=== PATIENT | male | born 1955 | race Caucasian/White ===

== ENCOUNTER 2017-12-10 09:52 | Day surgery (SDC) | payer BC ==
[2017-12-10] MEDS ORDERED: Sodium Chloride 0.9% 10 ML Syringe FLUSH PRN (10:30)
[2017-12-10] MEDS: Lactated Ringers 1,000 ML IV SCH (10:57)
[2017-12-10] MEDS ORDERED: Propofol 200 MG/20 ML SDV ONE ×2 (11:36→11:42)
[2017-12-10] MEDS ORDERED: fentaNYL 100 MCG/2 ML SDV ONE ×2 (11:36→11:42)
[2017-12-10] MEDS ORDERED: Midazolam 1 MG/ML 2 ML SDV ONE ×2 (11:36→11:42)
--- NOTE | 2017-12-10 12:12 | PCM.OPNOTE ---
- General Post-Op/Procedure Note Date of Surgery/Procedure: 12/10/17 Operative Procedure(s): Colonoscopy with Bx's Findings: Normal Pre Op Diagnosis: Chronic Diarrhea Post-Op Diagnosis: Same Anesthesia Technique: MAC Primary Surgeon: Ubaldo Perry Anesthesia Provider: Loly Stephens EBL in mLs: 0 Complications: None Condition: Good Free Text/Narrative:: Intake & Output 12/09/17 12/10/17 12/10/17 22:59 06:59 14:59 Intake Total 300 Balance 300
--- NOTE | 2017-12-10 14:22 | OR ---
Date of Procedure: 12/10/2017 PREOPERATIVE DIAGNOSIS: Chronic diarrhea. POSTOPERATIVE DIAGNOSIS: Normal colonoscopy. PROCEDURE: Colonoscopy with biopsy. ANESTHESIA: IV sedation. DESCRIPTION OF PROCEDURE: The patient was brought to procedure room where he was placed on his left side and IV sedation administered. Digital rectal exam was performed which was normal. Colonoscope was inserted and advanced to the level of the cecum without difficulty. Cecal position was confirmed by identifying the appendiceal lumen and ileocecal valve. Prep was good and surfaces were well visualized. Upon withdrawing the scope, the ascending, transverse, and descending colon were all normal in appearance. Sigmoid colon and rectum were normal. Retroflexion was normal. I did take random biopsies throughout all segments of the colon and rectum to check for microscopic colitis. No source of diarrhea was seen. Air was removed and the scope withdrawn. The patient tolerated the procedure well and returned to recovery in stable condition. The patient's worsening diarrhea corresponds with the time when he was taken off Welchol. His symptoms are suspicious for bile salt diarrhea. I will have him try cholestyramine powder before meals and follow up with Jodie Peters next week to go over the biopsies and to see if the cholestyramine powder may be helping. A routine colon colonoscopy is recommended in 10 years. JAMIN SIMEON MD /[id number]
== END 2017-12-10 13:20 | disposition home or self-care (01) ==
LOC: LL.SDS 09:52
PROVIDERS: ATTEND Surgery
DX: K52.9 Noninfective gastroenteritis and colitis, unspecified (principal); E11.9 Type 2 diabetes mellitus without complications; I10 Essential (primary) hypertension; E78.5 Hyperlipidemia, unspecified; K21.9 Gastro-esophageal reflux disease without esophagitis; G47.33 Obstructive sleep apnea (adult) (pediatric); E05.90 Thyrotoxicosis, unspecified without thyrotoxic crisis or storm; F32.9 Major depressive disorder, single episode, unspecified; Z79.84 Long term (current) use of oral hypoglycemic drugs; Z79.82 Long term (current) use of aspirin; Z79.899 Other long term (current) drug therapy; Z88.8 Allergy status to other drugs, medicaments and biological substances
CPT/HCPCS: J2250; J2704; J3010; J7120